=== PATIENT | male | born 1995 | race Caucasian/White ===

== ENCOUNTER 2016-11-07 12:42 | Emergency (ER) | payer OTHER ==
[~2016-11-07] VITALS: Ht 180.3 cm; Wt 69.1 kg
[2016-11-07 12:47] VITALS: TEMP 36.9; Ht 180.3 cm; Wt 69.1 kg
[2016-11-07] MEDS ORDERED: ACETAMINOPHEN 500 MG TAB PO STA (12:56)
--- NOTE | 2016-11-07 13:22 | DIAGNOSTIC IMAGING REPORT ---
CT HEAD WITHOUT CONTRAST (CT) CLINICAL HISTORY: Headache status post head trauma COMPARISON STUDY: No previous studies for comparison. TECHNIQUE: Axial CT of the brain is performed from the vertex to the skull base. IV contrast was not administered for this examination. CT DOSE: 823.94 mGycm FINDINGS: No intra or extra-axial mass lesions are visualized. There is no CT evidence of acute cortical infarction. There is no evidence of midline shift. There is no acute hemorrhage. No calvarial fractures are visualized. There is no evidence of pathologic ventricular dilatation. There is no evidence of acute sinusitis IMPRESSION: Normal noncontrast head CT. Electronically signed by: Nathan Adkins M.D. 11/07/2016 1:21 PM Dictated Date/Time: 11/07/2016 1:20 PM
[2016-11-07] MEDS ORDERED: FLUO10CA48 PO (13:31)
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
[2016-11-07 13:45] VITALS: BP 139/78; PULSE 72; O2SAT 98
[2016-11-07] MEDS ORDERED: LISD50CA4 PO (21:44)
[2016-11-07] MEDS ORDERED: AMPH10TA2 PO (21:44)
== END 2016-11-07 13:46 | disposition home or self-care (01) ==
LOC: C.EDB 12:43 → C.EDD 13:46
DX: S09.90XA Unspecified injury of head, initial encounter (principal); Y04.0XXA Assault by unarmed brawl or fight, initial encounter; W10.9XXA Fall (on) (from) unspecified stairs and steps, initial encounter; Y92.009 Unspecified place in unspecified non-institutional (private) residence as the place of occurrence of the external cause; J45.909 Unspecified asthma, uncomplicated; Z79.899 Other long term (current) drug therapy

== ENCOUNTER 2017-11-19 12:22 | Emergency (ER) | payer OTHER ==
[~2017-11-19] VITALS: Ht 175.3 cm; Wt 76.9 kg
[~2017-11-19 12:22] MED LIST: AMPH10TA2 PO; FLUO10CA48 PO; LISD50CA4 PO
[2017-11-19 12:40] VITALS: TEMP 36.6; Ht 175.3 cm; Wt 76.9 kg
[2017-11-19] MEDS ORDERED: CYM/30 PO (13:03)
[2017-11-19] MEDS ORDERED: LISD70CA PO (13:03)
[2017-11-19] MEDS ORDERED: ONDANSETRON INJ 2 MG/ML 2 ML VIAL IV STA (13:04)
[2017-11-19] MEDS ORDERED: MoRPHine SULFATE 10 MG/ML CARP/VIAL IV STA (13:04)
--- NOTE | 2017-11-19 13:06 | EMERGENCY ROOM VISIT NOTE ---
History Report prepared by Areliibjocelyn: Jackelin Corral Under the Supervision of: Dr. aDo aHnsen M.D. First contact with patient: 12:55 Chief Complaint: SHOULDER PAIN Stated Complaint: SEVERE SHOULDER PAIN History of Present Illness The patient is a 22 year old male who presents to the Emergency Room with complaints of persistent left shoulder pain. He reports he was snowboarding at [facility] this morning when he came off a jump, and landed on his left shoulder. He rates his discomfort as an 8/10 in severity. Movement worsens his pain. He can still move his fingers and can feel normal sensation in the arm. He denies hitting his head or experiencing any LOC during the fall and notes he was wearing a helmet. The patient reports he experienced intermittent left shoulder pain starting in early October after a ski trip to [place], but denies any known injury at the time. His only daily medications are for a history of ADHD. The patient states the only thing he ate today was a donut at 0800 this morning. Source of History: patient Onset: SOLUTION ADVISOR Position: shoulder (left) Symptom Intensity: 8/10 Timing: other (persistent) Modifying Factors (Worsening): movement Associated Symptoms: No LOC Review of Systems See HPI for pertinent positives & negatives. A total of 10 systems reviewed and were otherwise negative. Past Medical & Surgical Medical Problems: (1) ACL (anterior cruciate ligament) tear (2) ADHD Social History Smoking Status: Never Smoker Alcohol Use: occasionally Drug Use: none Marital Status: single Housing Status: lives with roommate Occupation Status: [employer] student Current/Historical Medications Scheduled Amphetamine-Dextroamphetamine 10MG (Adderall 10MG), 20 MG PO DAILY Duloxetine HCl (Cymbalta), 30 MG PO DAILY Lisdexamfetamine Dimesylate (Vyvanse), 70 MG PO DAILY Scheduled PRN Oxycodone Immediate Rel Tab (Roxicodone Ir), 1-2 TAB PO Q4H PRN for Severe Pain Allergies Coded Allergies: No Known Allergies (Unverified , 11/19/17) Physical Exam Vital Signs Date Time Temp Pulse Resp B/P (MAP) Pulse Ox O2 Delivery O2 Flow Rate FiO2 11/19/17 15:24 78 18 124/69 98 11/19/17 14:13 60 18 106/61 96 Room Air 11/19/17 12:40 36.6 65 18 117/78 98 Room Air Physical Exam GENERAL: Patient is very uncomfortable appearing and appears to be in severe distress. HEENT: No acute trauma, normocephalic atraumatic, mucous membranes moist, no nasal congestion, no scleral icterus. NECK: No stridor, no adenopathy, no meningismus, trachea is midline. LUNGS: No dyspnea. Clear to auscultation and equal bilaterally. No wheeze, no rhonchi. HEART: Regular rate and rhythm. No murmurs, rubs, gallops appreciated. ABDOMEN: Soft, nontender, bowel sounds positive, no masses appreciated, no peritonitis. BACK: No midline tenderness, no CVA tenderness EXTREMITIES: Gross deformity of left upper shoulder, tenting of skin by clavicle , severe pain with ROM of left shoulder, distal NV intact. No cyanosis, no edema. NEUROLOGIC: Alert and oriented, no acute motor or sensory deficits, no focal weakness, cranial nerves grossly intact. SKIN: No rash, no jaundice, no diaphoresis. Medical Decision & Procedures ER Provider Diagnostic Interpretation: Radiology results and stated below per my review and radiologist interpretation: L SHOULDER MIN 2 VIEWS ROUTINE HISTORY: 22 years-old Male left shoulder pain s/p fall snowboarding acute left shoulder pain COMPARISON: None available TECHNIQUE: 2 views of the left shoulder FINDINGS: 3 mm bone fragment is seen caudal to the distal most portion of the clavicle. There is mild widening of the C joint, 4 mm with superior elevation of the distal clavicle, coracoclavicular interval measuring 1.3 cm. No acute fracture. The left proximal humerus and glenohumeral joint appear unremarkable however evaluation is limited secondary to positioning. Imaged left lung phillips appear clear. IMPRESSION: 1. 3 mm bone fragment adjacent to the distal most clavicle suggests acute avulsion fracture. 2. Widening of the AC joint with cephalad displacement of the distal clavicle which is seen at the level of the superior cortical border acromium suggests acute grade II or grade III acromioclavicular joint injury. The above report was generated using voice recognition software. It may contain grammatical, syntax or spelling errors. Electronically signed by: Camacho Dewey M.D. 11/19/2017 1:57 PM Medications Administered Medications (Trade) Dose Ordered Sig/Charles Route Start Time Stop Time Status Last Admin Dose Admin Morphine Sulfate (MoRPHine SULFATE INJ) 10 mg NOW STAT IV 11/19/17 13:04 11/19/17 13:05 DC 11/19/17 13:17 10 MG Ondansetron HCl (Zofran Inj) 4 mg NOW STAT IV 11/19/17 13:04 11/19/17 13:05 DC 11/19/17 13:16 4 MG Hydromorphone HCl (Dilaudid Inj) 1 mg NOW STAT IV 11/19/17 14:18 11/19/17 14:19 DC 11/19/17 14:28 1 MG Oxycodone HCl (Roxicodone Immediate Rel 5MG Home Pack) 1 homepack UD ONCE PO 11/19/17 15:00 11/19/17 15:01 DC 11/19/17 15:21 1 HOMEPACK ED Course 1257: The patient was evaluated in room C12. A complete history and physical exam was performed. 1304: Zofran 4 mg IV, Morphine Sulfate 10 mg IV. 1340: I reevaluated the patient. He is feeling better. 1411: I discussed the patients case with Dr. Etienne, [facility]. He recommends a sling and following up in the office. 1418: Dilaudid 1 mg IV. 1430: I reevaluated the patient. He is receiving Dilaudid and will follow up with outpatient Orthopedics based on his Mothers recommendations. 1450: I reevaluated the patient. I discussed the risks, benefits and indications of narcotic pain medications. He states he is aware of them and denies previous problems with narcotics or controlled substances. I discussed his discharge instructions and he verbalized complete understanding and agreement. 1500: Oxycodone HCl 5 mg 1 homepack PO. Medical Decision 22 yr old male arrives for evaluation left shoulder pain s/p injury snowboarding. Grade 3 AC separation with small fracture by imaging. No significant tenting of skin and pain controlled here with IV dilaudid. Patient advised importance of follow up with Ortho as soon as possible and I advised he call them in morning to schedule appointment KELLI. He notes he may just see doc back home and I made it clear that I feel early evaluation is very important. Sling placed. Discussed Narcotic risks/restrictions which he acknowledges. I offered to discuss case with his mother who is PRODUCT DESIGNER though he notes she is busy. There are no other injuries and patient is stable, breathing comfortably and much more comfortable than arrival. Medication Reconcilliation Current Medication List: was personally reviewed by me Blood Pressure Screening Patient's blood pressure: Normal blood pressure Blood pressure disposition: Did not require urgent referral Consults Time Called: 1406 Consulting Physician: Dr. Etienne, [facility] Returned Call: [phone] I discussed the patients case with Dr. Etienne, [facility]. He recommends a sling and following up in the office. Impression Primary Impression: AC separation Scribe Attestation The scribe's documentation has been prepared under my direction and personally reviewed by me in its entirety. I confirm that the note above accurately reflects all work, treatment, procedures, and medical decision making performed by me. Departure Information Dispostion Home / Self-Care Prescriptions Oxycodone Immediate Rel Tab (ROXICODONE IR) 5 Mg Tab 1-2 TAB PO Q4H Y for Severe Pain, #20 TAB Prov: Dao Hansen M.D. 11/19/17 Referrals [facility] (PCP) Morales Etienne M.D. Patient Instructions [facility], Treatment for Shoulder Separation Additional Instructions It is very important that you follow up with Orthopedics as you may require surgery given extent of your injury. You have received a narcotic pain medication prescription. These medications may cause drowsiness and should not be used with other sedative medications. Do not drive, drink alcohol, perform dangerous activities, nor make important decisions after taking these medications. assistant terminal manager use or inappropriate use may lead to addiction. Do not sell nor give this medication to any other person. Problem Qualifiers Primary Impression: AC separation Encounter type: initial encounter Laterality: left Qualified Codes: S43.102A - Unspecified dislocation of left acromioclavicular joint, initial encounter
--- NOTE | 2017-11-19 13:59 | DIAGNOSTIC IMAGING REPORT ---
L SHOULDER MIN 2 VIEWS ROUTINE HISTORY: 22 years-old Male left shoulder pain s/p fall snowboarding acute left shoulder pain COMPARISON: None available TECHNIQUE: 2 views of the left shoulder FINDINGS: 3 mm bone fragment is seen caudal to the distal most portion of the clavicle. There is mild widening of the C joint, 4 mm with superior elevation of the distal clavicle, coracoclavicular interval measuring 1.3 cm. No acute fracture. The left proximal humerus and glenohumeral joint appear unremarkable however evaluation is limited secondary to positioning. Imaged left lung phillips appear clear. IMPRESSION: 1. 3 mm bone fragment adjacent to the distal most clavicle suggests acute avulsion fracture. 2. Widening of the AC joint with cephalad displacement of the distal clavicle which is seen at the level of the superior cortical border acromium suggests acute grade II or grade III acromioclavicular joint injury. The above report was generated using voice recognition software. It may contain grammatical, syntax or spelling errors. Electronically signed by: Camacho Dewey M.D. 11/19/2017 1:57 PM Dictated Date/Time: 11/19/2017 1:53 PM
[2017-11-19] MEDS ORDERED: HYDROmorphone INJ 1 MG/ML SYR IV STA (14:18)
[2017-11-19] MEDS ORDERED: OXYC1TAB3 PO (14:57)
[2017-11-19] MEDS ORDERED: OXYCODONE IR HOME PACK PO ONE (15:00)
[2017-11-19 15:24] VITALS: BP 124/69; PULSE 78; O2SAT 98
== END 2017-11-19 15:26 | disposition home or self-care (01) ==
LOC: C.EDB 12:23 → C.EDC 15:26
DX: S43.102A Unspecified dislocation of left acromioclavicular joint, initial encounter (principal); W19.XXXA Unspecified fall, initial encounter; Y92.89 Other specified places as the place of occurrence of the external cause; Y93.23 Activity, snow (alpine) (downhill) skiing, snowboarding, sledding, tobogganing and snow tubing; F90.9 Attention-deficit hyperactivity disorder, unspecified type; Z79.899 Other long term (current) drug therapy

== ENCOUNTER → 2018-01-29 | Outpatient (CLI) | payer OTHER ==
[~2018-01-29] MED LIST changes: +CYM/30 PO; -FLUO10CA48 PO; -LISD50CA4 PO; +LISD70CA PO; +OXYC1TAB3 PO
--- NOTE | 2018-01-29 15:52 | DIAGNOSTIC IMAGING REPORT ---
L CLAVICLE CLINICAL HISTORY: 22 years-old Male presenting with V67.09 follow-up after AC joint repair. TECHNIQUE: Frontal and oblique views of the left clavicle were obtained. COMPARISON: 11/19/2017. FINDINGS: Redemonstration of the avulsion fracture fragment at the distal clavicle along the inferior cortex. There is no widening of the acromioclavicular joint. The previously noted superior subluxation of the distal clavicle relative to the acromion process is no longer present. A primarily radiolucent anchor fixation of the distal clavicle to the coracoid process is noted. The coracoclavicular distance is now normal. No new osseous abnormality or malalignment. IMPRESSION: Postsurgical changes of AC joint repair and coracoclavicular fixation. No residual malalignment at the AC joint. Electronically signed by: Morales Galloway M.D. 01/29/2018 3:51 PM Dictated Date/Time: 01/29/2018 3:49 PM
== END | disposition home or self-care (01) ==
LOC: C.RAD1850 15:08
PROVIDERS: ATTEND Orthopaedic Surgery
DX: Z09 Encounter for follow-up examination after completed treatment for conditions other than malignant neoplasm (principal)